=== PATIENT | female | born 1960 | race African-American/Black ===

== ENCOUNTER 2016-12-17 03:05 | Inpatient (IN) | payer OTHER, MEDICARE ==
[~2016-12-17] VITALS: Ht 162.6 cm; Wt 94.8 kg
[~2016-12-17 03:05] MED LIST: ATORVASTATIN CA10 M1 PO; DYAZIDE 37.5-21 EACH PO; OTEZLA30 M2 PO
[2016-12-17] MEDS ORDERED: MS CONTIN15 M2 PO (15:53)
[2016-12-17] MEDS ORDERED: DILAUDID2 M1 PO (15:53)
[2016-12-17] MEDS ORDERED: MIRALAX17 G1 PO (15:53)
[2016-12-17] MEDS ORDERED: PRILOSEC OTC20 M1 PO (15:53)
[2016-12-17] MEDS ORDERED: COLACE100 M1 PO (15:53)
[2016-12-17] MEDS ORDERED: ASPIRIN EC325 M2 PO (15:53)
--- NOTE | 2016-12-17 15:58 | Patient Discharge Instructions ---
Discharge Instructions General Discharge Information You were seen/treated for: RIGHT KNEE PAIN You had these procedures: RIGHT TOTAL KNEE REPLACEMENT Watch for these problems: Increasing pain despite the use of pain medication. Increasing redness, warmth, or swelling. Drainage of any type from incision. Inability to bear weight on right leg. Fever greater than 101.5 degrees. Do not soak the wound: Yes No bath, but you may shower: Yes Other wound care: Keep wound clean and dry. Daily dry dressing changes to begin post op day 2 No ointments of any type on incision, no exceptions. Special Instructions: Aspirin 325 mg to be taken twice daily with food Colace and miralax to be taken to prevent constipation which is commonly associated with pain medication Diet Continue normal diet: Yes Recommended Diet: Regular Additional DIET Information: Advance as tolerated Activity Full Activity/No Limits: No Activity Self Limited: Yes Pounds, do NOT lift more than: 10 Additional ACTIVITY Info: Weight bear as tolerated on right leg Acute Coronary Syndrome Inclusion Criteria At DC or during hospital stay patient has or had the following: ACS DIAGNOSIS No Discharge Core Measures Meds if any: Prescribed or Continued at Discharge Meds if any: NOT Prescribed or Continued at Discharge Congestive Heart Failure Inclusion Criteria At DC or during hospital stay patient has or had the following: CHF DIAGNOSIS No Discharge Core Measures Meds if any: Prescribed or Continued at Discharge Meds if any: NOT Prescribed or Continued at Discharge Cerebrovascular accident Inclusion Criteria At DC or during hospital stay patient has or had the following: CVA/TIA Diagnosis No Discharge Core Measures Meds if any: Prescribed or Continued at Discharge Meds if any: NOT Prescribed or Continued at Discharge Venous thromboembolism Inclusion Criteria VTE Diagnosis No VTE Type NONE VTE Confirmed by (Test) NONE Discharge Core Measures - Per Current guidelines, there needs to be overlap - treatment for the first 5 days of Warfarin therapy. - If discharged on Warfarin prior to 5 days of - overlap therapy, the patient will need to be - assessed for post discharge needs including - *Post discharge parental anticoagulation - *Warfarin and/or parental anticoagulation education - *Follow up date to check INR post discharge At least 5 days overlap therapy as Inpatient No Meds if any: Prescribed or Continued at Discharge Note: Overlap Therapy is Warfarin and Anticoagulant Meds if any: NOT Prescribed or Continued at Discharge
--- NOTE | 2016-12-17 16:00 | Admission Core Measures ---
Admission Meds I reviewed the following Meds: Current Medications Sig/Mathew Start time Last Medication Dose Stop Time Status Admin Acetaminophen 975 MG ONCE 12/17 0000 NR (Tylenol) 12/17 2358 Atorvastatin Calcium 10 MG DAILY 12/18 1000 UNVr (Lipitor) Cefazolin Sodium 2,000 MG ONCE 12/17 0000 NR (Kefzol-Ancef Inj) 12/17 2358 Oxycodone HCl 10 MG ONCE 12/17 0000 NR (Roxicodone) 12/17 2358 Triamterene/HCTZ 1 CAP DAILY 12/18 1000 UNVr (Dyazide) Acute Coronary Syndrome Inclusion Criteria ACS Diagnosis No Inpatient Core Measures LDL Reminder: If No, please order W/I first 24hr of stay Congestive Heart Failure Inclusion Criteria CHF Diagnosis No Cerebrovascular accident Inclusion Criteria CVA/TIA Diagnosis No Inpatient Core Measures Bedside Swallow Eval Reminder: If BSE failed, place ST order Antithrombotic Reminder: Order Antithrombotic Medication by end of day 2 Antithrombotic Reminder: Document Reason Antithrombotic Not ordered by end of day 2 AFIB/Flutter Reminder: If Present, add to problem list AFIB/Flutter Reminder: Order Anticoag Medication for pts with AFIB/Flutter Atherosclerosis Reminder: If Present, add to problem list LDL Reminder: If No, please order W/I first 24hr of stay PT Order Reminder: If No, please order Venous thromboembolism Inpatient Core Measures VTE Risk Factors: Age > 40, Surgery No [facility] VTE prophylaxis d/t No contraindications No VTE Pharm Prophylaxis d/t No contraindications Inclusion Criteria - Per Current guidelines, there needs to be overlap - treatment for the first 5 days of Warfarin therapy. - Parenteral Anticoagulation (IV or SC) needs to be - given along with Warfarin therapy. VTE Diagnosis No VTE Type NONE VTE Confirmed by (Test) NONE Problem List As ranked by this Provider includes Assessment & Plan 1. Unilateral primary osteoarthritis, right knee HOME MEDS Home Med List Apremilast (Otezla) 30 MG TABLET 1 TAB PO BID PAIN (Reported) Aspirin (Ecotrin*) 325 MG TABLET.DR 1 TAB PO BID ANTICOAGULATION Atorvastatin Calcium 10 MG TABLET 1 TAB PO DAILY CHOLESTEROL (Reported) Docusate Sodium (Colace) 100 MG CAPSULE 1 CAP PO BID CONSITPATION Hydromorphone HCl (Dilaudid) 2 MG TABLET 1-2 TAB PO Q4-6 PRN PAIN Morphine Sulfate (Ms Contin) 15 MG TABLET.ER 1 TAB PO BID PAIN Omeprazole Magnesium (Prilosec Otc) 20 MG TABLET.DR 1 TAB PO DAILY GI PROTECTION Polyethylene Glycol 3350 (Miralax) 17 GRAM POWD.PACK 1 PAC PO DAILY CONSTIPATION Triamterene/Hydrochlorothiazid (Dyazide 37.5-25 Capsule) 37.5 MG-25 MG CAPSULE 1 CAP PO DAILY HTN (Reported)
--- NOTE | 2016-12-17 16:04 | Surgical Discharge Summary ---
Visit Information Visit Dates Admission Date: 12/17/16 Discharge Date: 12/20/16 History of Present Illness Chief Complaint: Right knee pain Surgical History Pertinent Surgical History: none Review of Systems: See H&P Hospital Course Course Attending Physician: SERGO ANN MD Primary Care Physician: GRANT HYLTON,[facility] Course: Ramsey was admitted to the hospital on 12/17/2016 for an elective right total knee replacement. She tolerated the procedure well and was transferred to a general surgical floor. There her vital signs were stable and within normal limits and her neurovascular status remained intact. Her diet was advanced and tolerated and she voided spontaneoulsy. Her pain was controlled with po pain medication. She was evaluated and treated by physical therapy. She was deemed appropriate for discharge. Allergies: Coded Allergies: clindamycin (Severe, HIVES 12/15/16) Disposition Summary Disposition Principal Diagnosis: Right knee unilateral primary osteoarthritis Additional Diagnosis: None Discharge Disposition: home health services Discharge Instructions General Discharge Information Code Status: Full Code Patient's Diet: Regular, advance as tolerated Patient's Activity: WBAT Follow-Up Instructions/Appts: Follow up with Dr. Ann in 6 weeks from date of surgery. Call office to arrange or confirm that appointement. Medications at Discharge Discharge Medications: Continue taking these medications: Triamterene/Hydrochlorothiazid (Dyazide 37.5-25 Capsule) 37.5 MG-25 MG CAPSULE 1 Capsule ORAL DAILY Atorvastatin Calcium (Atorvastatin Calcium) 10 MG TABLET 1 Tablet ORAL DAILY Apremilast (Otezla) 30 MG TABLET 1 Tablet ORAL TWICE DAILY Start taking the following new medications: Aspirin (Ecotrin*) 325 MG TABLET.DR 1 Tablet ORAL TWICE DAILY Qty = 60 No Refills Hydromorphone HCl (Dilaudid) 2 MG TABLET 1-2 Tablet ORAL EVERY 4-6 HOURS as needed for PAIN Qty = 36 No Refills Polyethylene Glycol 3350 (Miralax) 17 GRAM POWD.PACK 1 Packet ORAL DAILY Qty = 7 No Refills Instructions: dissolve in water, DISCONTINUE USE IF YOU DEVELOP LOOSE STOOL OR DIARRHEA Docusate Sodium (Colace) 100 MG CAPSULE 1 Capsule ORAL TWICE DAILY Qty = 14 No Refills Instructions: DISCONTINUE USE IF YOU DEVELOP LOOSE STOOL OR DIARRHEA Omeprazole Magnesium (Prilosec Otc) 20 MG TABLET.DR 1 Tablet ORAL DAILY Qty = 30 No Refills Morphine Sulfate (Ms Contin) 30 MG TABLET.ER 1 Tablet ORAL 2 x Daily as needed as needed for pain Qty = 6 No Refills
[2016-12-17 17:35] VITALS: BP 138/80
--- NOTE | 2016-12-17 17:35 | NUR ---
AT THIS TIME PT ADMITTED TO ROOM FROM THE PACU, PT VSS, ALERT AND ORIENTEDX3, ON RA, DENIES SOB, DENIES CP, DSG TO R KNEE C/D/I, ICE TO KNEE, ONQ PUMP IN PLACE RUNNING AT 10ML/HR, +PULSES, +BS, SKIN INTACT, PT C/O OF NO PAIN, PT ORIENTED TO ROOM AND CALL PARK, BED IN LOWEST POSITION AND LOCKED, WILL CONT TO MONITOR.
--- NOTE | 2016-12-17 18:39 | Operative Report ---
Operative/Inv Procedure Report Surgery Date: 12/17/16 Name of Procedure: Right total knee replacement Pre-Operative Diagnosis: Primary right knee DJD Post-Operative Diagnosis: Same Estimated Blood Loss: 50ml to 100ml Surgeon/Driver Service Technician: SETH HYLTON,SERGO Chavez Anesthesia: block Operative/Procedure Note Note: Description of Procedure: The patient was taken to the operating room and positively identified. After induction of spinal anesthesia and administration of appropriate pre-operative antibiotics, the patient was positioned supine on the operating room table and all bony prominences were well padded. A well-padded pneumatic tourniquet was placed on the right upper thigh. After performing a surgical timeout, the right lower extremity was prepped and draped in the usual sterile fashion. After exsanguination with Esmarch the tourniquet was inflated to 250mm of mercury. A standard medial parapatellar approach was made to the knee. This was carried down through skin and subcutaneous tissue to the level of the fascia. Meticulous hemostasis was maintained with Bovie electrocautery. The extensor mechanism and patellar retinaculum were opened sharply and the patella was everted. The infrapatellar fat was resected in order to improve exposure. Osteophytes were trimmed from the patella and femoral condyles and the patella was re-everted and tucked laterally. A medial release was performed and the cruciate ligaments were resected. The tibia was then subluxed anteriorly. Utilizing the appropriate extra-medullary guide, the proximal tibia was trimmed perpendicular to the long axis of the tibial shaft. Attention was then turned to the femur. After opening the medullary canal, the distal femoral cut was made in 6 degrees of valgus utilizing the appropriate intra-medullary guide. The extension gap was checked and found to be appropriate. The femur was then sized and the remainder of the femoral cuts were made with a size 4 4-in-1 femoral cutting guide. The flexion gap was checked and found to be symmetric and appropriate. The knee was then trialed with a size 4 femoral component, a size 3 tibial component and a size 13 mm polyethylene insert. The patella was trimmed to accept an A 32 patella. This yielded excellent range of motion, stability and patellar tracking. All trial components were removed and the knee was copiously irrigated with sterile saline. All components were cemented into place with Pointblank Simplex cement. All the components were of the Wendy Triathlon knee system of the above stated sizes. The knee was again irrigated after cementation. The extensor mechanism and patellar retinaculum were repaired using interrupted #1 vicryl suture. The skin was re-approximated with 2-0 vicryl and closed with ashlee. A sterile dressing was applied, the tourniquet was deflated, the patient was awakened and taken to the recovery room in satisfactory condition.
[2016-12-17 20:05] VITALS: BP 148/80
--- NOTE | 2016-12-17 22:03 | PN- Orthopedic ---
Subjective Subjective: POC S/P TKA NO MAJOR COMPLAINTS DENEIS CP, SOB, NO N+V WITH DIET Objective Vital Signs and I&Os Vital Signs Date Time Temp Pulse Resp B/P B/P Pulse O2 O2 Flow FiO2 Mean Ox Delivery Rate 12/17 2004 98.3 74 18 148/80 96 Room Air 12/17 1735 97.7 71 20 138/80 94 Room Air Physical Exam: CV; RRR LUNGS: CLEAR ABD: SOFT, +BS EXT: DRSG DRY DISTAL CMS INTACT ONQ IN PLACE Assessment/Plan Assessment/Plan ORTHO STABLE PLAN ASA FOR DVT PROPHYLAXIS OOB WITH PT IN AM OTEZLA APPROVED BY INPATIENT PHARM FOR HOSP USE HOME D/C PLANNING Core Measures/Miscellaneous Venous Thromboembolism VTE Risk Factors: Age > 40, Surgery VTE Contraindications: No Contraindications VTE Diagnosis: No VTE Type: NONE VTE Confirmed by (Test): NONE Beta Jessenia Is Beta Jessenia a Home Med? No Antibiotics Is Patient on Antibiotics? Yes If Yes: prophylaxis
[2016-12-17 23:12] VITALS: BP 124/70
[2016-12-18 04:00] VITALS: BP 128/72
[2016-12-18 06:39] VITALS: BP 118/70
--- NOTE | 2016-12-18 09:08 | PN- Orthopedic ---
Subjective Subjective: 56-year-old female postop day 1 status post right total knee replacement. She is feeling well, complains of pain to the lateral and posterior aspect of the knee which is moderate to severe. Pain medication is helping somewhat. She has no complaints of abdominal pain, nausea, vomiting, chest pain, fever or flulike illness. Objective Vital Signs and I&Os Vital Signs Date Time Temp Pulse Resp B/P B/P Pulse O2 O2 Flow FiO2 Mean Ox Delivery Rate 12/18 0639 97.4 52 20 118/70 94 Room Air 12/18 0400 97.8 72 18 128/72 99 Room Air 12/17 2312 97.7 65 18 124/70 92 Room Air 12/17 2004 98.3 74 18 148/80 96 Room Air 12/17 1735 97.7 71 20 138/80 94 Room Air Intake & Output 12/18 1600 12/18 0800 12/18 0000 12/17 1600 12/17 0800 12/17 0000 Intake Total 1800 1575 Output Total 2100 1000 Balance -300 575 Intake, IV 600 375 Intake, Oral 1200 1200 Output, Urine 2100 1000 Patient 210 lb Weight Weight Reported by Patient Measurement Method Physical Exam: Well-developed well-nourished no apparent distress. HEENT: Atraumatic, extraocular motion intact Neck: Supple, no lymphadenopathy Respiratory: No respiratory distress Extremities: No edema RIGHT lower extremity dressing in place, Range of motion is 0-[address] On Q in place ALPS in place Neurovascularly intact distally Bilateral calves are supple, nontender. Neuro: Alert and oriented x3 Psych: Mood affect normal, normal memory normal judgment. Skin: Warm and dry, no rash on exposed skin Results Last 48 Hours of Labs: Laboratory Tests 12/18 12/18 0700 0600 Chemistry Sodium (137 - 145 mmol/L) 135 L Potassium (3.5 - 5.1 mmol/L) 4.6 Chloride (98 - 107 mmol/L) 100 Carbon Dioxide (22 - 30 mmol/L) 22 Anion Gap (5 - 16) 13 BUN (7 - 17 mg/dL) 15 Creatinine (0.5 - 1.0 mg/dL) 0.8 Estimated GFR (>60 ml/min) > 60 BUN/Creatinine Ratio (7 - 25 %) 18.8 Hematology CBC w Diff Cancelled WBC Cancelled RBC Cancelled Hgb Cancelled Hct Cancelled MCV Cancelled MCH Cancelled RDW Cancelled Plt Count Cancelled MPV Cancelled PUBS MCHC Cancelled Assessment/Plan Assessment/Plan Postop day 1 status post right total knee arthroplasty -Add MS Contin for better pain control 15mg twice a day -Out of bed with physical therapy, knee immobilizer in place while out of bed -Aspirin for DVT prophylaxis 325 mg twice a day -GI prophylaxis -Postop antibiotics completed -Continue on Q, DC tomorrow -Dressing change tomorrow right lower extremity -DC IV fluids -Cancel CBC this morning as they were unable to draw patient, vital signs stable , no bleeding on dressing, medically not necessary at this time -Anticipate discharge in 1-2 days to home with usp Core Measures/Miscellaneous Venous Thromboembolism VTE Risk Factors: Age > 40, Surgery VTE Contraindications: No Contraindications VTE Diagnosis: No VTE Type: NONE VTE Confirmed by (Test): NONE Beta Jessenia Is Beta Jessenia a Home Med? No Antibiotics Is Patient on Antibiotics? Yes If Yes: prophylaxis
[2016-12-18 14:09] VITALS: BP 132/78
[2016-12-18 23:19] VITALS: BP 140/82
--- NOTE | 2016-12-19 07:24 | PN- Orthopedic ---
Subjective Subjective: Patient more comfortable today but still complaining of pain. The MS Joseph helped her a little bit. She denies any fever or flulike illness chest pain nausea vomiting or illness. She has pain to the anterior right knee. She has been up and ambulatory and doing well Objective Vital Signs and I&Os Vital Signs Date Time Temp Pulse Resp B/P B/P Pulse O2 O2 Flow FiO2 Mean Ox Delivery Rate 12/18 2319 98.6 72 20 140/82 95 Room Air 12/18 1409 98.0 64 20 132/78 97 Room Air 12/18 1142 98.8 Intake & Output 12/19 0800 12/19 0000 12/18 1600 12/18 0800 12/18 0000 12/17 1600 Intake Total 916 243 7475 1575 Output Total 500 462 210 8818 1000 Balance -20 -70 -200 -300 575 Intake, IV 600 375 Intake, Oral 278 307 9050 1200 Output, Urine 500 118 299 0229 1000 Patient 210 lb Weight Weight Reported by Patient Measurement Method Physical Exam: Well-developed well-nourished no apparent distress. HEENT: Atraumatic, extraocular motion intact Neck: Supple, no lymphadenopathy Respiratory: No respiratory distress Extremities: No edema RIGHT lower extremity dressing in place, dressing changed Incision line is clean dry and intact with minimal bloody drainage. No signs of infection. Moderate joint effusion Range of motion is 0- 85. On Q catheter removed by myself Neurovascularly intact distally Bilateral calves are supple, nontender. Neuro: Alert and oriented x3 Psych: Mood affect normal, normal memory normal judgment. Skin: Warm and dry, no rash on exposed skin Assessment/Plan Assessment/Plan Postoperative day 2 status post right total knee arthroplasty. -Increase MS Contin for better pain control to 30mg twice a day -Out of bed with physical therapy, -Aspirin for DVT prophylaxis 325 mg twice a day -GI prophylaxis -On-Q discontinued and removed by myself -Daily dressing changes by nursing -Anticipate discharge in to home tomorrow with intermediate Core Measures/Miscellaneous Venous Thromboembolism VTE Risk Factors: Age > 40, Surgery VTE Contraindications: No Contraindications VTE Diagnosis: No VTE Type: NONE VTE Confirmed by (Test): NONE Beta Jessenia Is Beta Jessenia a Home Med? No Antibiotics Is Patient on Antibiotics? Yes If Yes: prophylaxis
[2016-12-19] MEDS ORDERED: MS CONTIN30 M1 PO (07:31)
[2016-12-19 07:45] VITALS: BP 139/73
[2016-12-19 14:58] VITALS: BP 130/64
[2016-12-19 22:46] VITALS: BP 126/68
[2016-12-20 06:44] VITALS: BP 128/76
--- NOTE | 2016-12-20 08:01 | PN- Orthopedic ---
Subjective Subjective: POD #3 s/p right TKR. Resting comfortably in bed. Asking if she is leaving today. Passing flatus, no BM yet. Objective Vital Signs and I&Os Vital Signs Date Time Temp Pulse Resp B/P B/P Pulse O2 O2 Flow FiO2 Mean Ox Delivery Rate 12/20 0644 98.4 77 18 128/76 97 Room Air 12/19 2246 98.2 79 16 126/68 96 Room Air 12/19 1458 98.2 70 18 130/64 96 Room Air Intake & Output 12/20 0800 12/20 0000 12/19 1600 12/19 0800 12/19 0000 12/18 1600 Intake Total 300 1200 800 480 480 Output Total 824 010 6493 500 550 200 Balance -200 250 -1150 -20 -70 -200 Intake, Oral 300 1200 800 480 480 Output, Urine 253 470 7428 500 550 200 Physical Exam: Gen: AAox3 in NAD Cor: S1+S2+ Lungs: CTA astrid Abd: soft, NT, ND, +BS x4 Ext: right knee dressing C/D/I. Replaced, incision C/D/I with ashlee. No surrounding erythema or drainage noted. negative Stephanie's sign. No calf tenderness noted. Current Medications: Current Medications Sig/Mathew Start time Last Medication Dose Route Stop Time Status Admin Aspirin 325 MG BID 12/17 2200 AC 12/19 PO 2137 Atorvastatin Calcium 10 MG 1700 12/18 1700 AC 12/19 PO 1700 Bisacodyl 10 MG DAILY PRN 12/19 0845 DC CO Docusate Sodium 100 MG BID 12/17 2200 AC 12/19 PO 2137 Hydromorphone HCl 2 MG Q4P PRN 12/17 1745 AC PO Hydromorphone HCl 4 MG Q4P PRN 12/17 1745 AC 12/20 PO 0631 Ketorolac 15 MG Q8P PRN 12/17 1745 AC 12/20 Tromethamine IV 12/20 173 0231 Magnesium Citrate 300 ML ONE ONE 12/20 0730 DC PO 12/20 07 Morphine Sulfate 30 MG BID 12/19 1000 AC 12/19 PO 213 Morphine Sulfate 2 MG Q2P PRN 12/17 1745 AC 12/19 IV 1612 Omeprazole 40 MG DAILY AC 12/18 0700 AC 12/20 PO 0628 Ondansetron HCl 4 MG Q6P PRN 12/17 1745 AC IV Patient Own 1 UNIT BID 12/17 2200 AC 12/19 Medication PO 2139 Polyethylene Glycol 17 GM DAILY 12/18 1000 AC 12/19 PO 0915 Promethazine HCl 12.5 MG Q6P PRN 12/17 1745 AC IV 12/24 1544 Triamterene/HCTZ 1 CAP DAILY 12/18 1000 AC 12/19 PO 0914 Assessment/Plan Assessment/Plan A: POD #3 s/p right TKR; AVSS Plan: Mag citrate x 1 bottle. D/C home with services today. Core Measures/Miscellaneous Venous Thromboembolism VTE Risk Factors: Age > 40, Surgery VTE Contraindications: No Contraindications VTE Diagnosis: No VTE Type: NONE VTE Confirmed by (Test): NONE Beta Jessenia Is Beta Jessenia a Home Med? No Antibiotics Is Patient on Antibiotics? Yes If Yes: prophylaxis
[2016-12-20] MEDS ORDERED: MORPHINE SULFAT30 M3 PO (09:51)
== END 2016-12-20 14:54 | disposition home health service (06) | DRG 470 ==
LOC: 2NB 03:05 → SDA 03:05 → ENRESERV 16:14 → CANRESERV 16:14 → ENRESERV 16:34 → 2NB 17:32 → ENPENDDIS 12-20 08:06 → 2NB 12-20 14:54
PROVIDERS: ADMIT Orthopaedic Surgery
PROC: 0SRC0J9 Replacement of Right Knee Joint with Synthetic Substitute, Cemented, Open Approach (ICD-10-PCS; principal; 2016-12-17)
DX: M17.11 Unilateral primary osteoarthritis, right knee (principal); L40.50 Arthropathic psoriasis, unspecified; I10 Essential (primary) hypertension; Z85.3 Personal history of malignant neoplasm of breast
CPT/HCPCS: 2NBSP; 36415; 82436; 88305; 97110-GO; 97116-GO; 97161-GP; 97530-GO; C1713; J0131; J0690; J1100; J2405; J2550; J2795; J7042